=== PATIENT | female | born 1965 | race Caucasian/White ===

== ENCOUNTER 2018-07-08 10:13 | Emergency (ER) | payer OTHER ==
--- NOTE | 2018-07-08 10:22 | UC ---
Respiratory Complaint HPI - HPI Summary HPI Summary: 52 yo female presents with sinus pain/pressure/congestion, post nasal drip, and intermittently productive for the last 5 days. She tells me that on day 1 and 2 she felt hot/cold and thinks she may have had a fever, but did not take her temperature. She has been taking mucinex and ibuprofen for her symptoms with little relief. Last night developed some redness in her right eye with clear/ yellow discharge - this morning woke with it spread into her left eye. She does not wear contacts. Denies sore throat, SOB, chest pain, vision changes, or trauma to eye. Her BP is quite elevated today, but pt did not take her medication this morning. Denies headache, vision change, weakness, numbness, chest pain. - History of Current Complaint Stated Complaint: SINUS INFECT/PINK EYE Time Seen by Provider: 07/08/18 10:22 Hx Obtained From: Patient Onset/Duration: Gradual Onset - Allergies/Home Medications Allergies/Adverse Reactions: Allergies Allergy/AdvReac Type Severity Reaction Status Date / Time metoprolol Allergy Hives Verified 07/08/18 10:23 Penicillins Allergy Swelling Verified 07/08/18 10:23 Home Medications: Home Medications Atenolol 50 mg PO BID 07/08/18 [History Confirmed 07/08/18] Pantoprazole TAB * [Protonix TAB*] 40 mg PO DAILY 07/08/18 [History Confirmed ] PMH/Surg Hx/FS Hx/Imm Hx Cardiovascular History: Hypertension GI/ History: Gastroesophageal Reflux - Family History Known Family History: Positive: None - Social History Occupation: Employed Full-time Lives: With Family Alcohol Use: Occasionally Substance Use Type: None Smoking Status (MU): Never Smoked Tobacco Review of Systems All Other Systems Reviewed And Are Negative: Yes Constitutional: Positive: Negative Skin: Positive: Negative Eyes: Positive: Drainage, Eye Redness ENT: Positive: Nasal Discharge, Sinus Congestion, Sinus Pain/Tenderness Respiratory: Positive: Cough Cardiovascular: Positive: Negative Gastrointestinal: Positive: Negative Neurovascular: Positive: Negative Neurological: Positive: Negative Psychological: Positive: Negative Physical Exam - Summary Physical Exam Summary: GENERAL: NAD. WDWN. No pain distress. SKIN: No rashes, sores, lesions, or open wounds. HEENT: Head: AT/NC Eyes: EOM intact. PERRLA. B/L EYE: Mild scleral injection. Conjunctiva with mild erythema and inflammation. Mild clear/yellow discharge. No FBs appreciated Ears: Hearing grossly normal. TMs intact, no bulging, erythema, or edema. Nose: Nasal mucosa mildly swollen and erythematous with yellow/ clear discharge. TTP maxillary > frontal sinus. Positive post nasal drip Throat: Posterior oropharynx without exudates, erythema, or tonsillar enlargement. Uvula midline. NECK: Supple. Nontender. No lymphadenopathy. CHEST: CTAB. No r/r/w. No accessory muscle use. Breathing comfortably and in no distress. CV: RRR. Without m/r/g. Pulses intact. NEURO: Alert. PSYCH: Age appropriate behavior. Triage Information Reviewed: Yes Vital Signs: Vital Signs: Temp Pulse Resp BP Pulse Ox 98.3 F 74 18 170/98 98 07/08/18 10:22 07/08/18 10:22 07/08/18 10:22 07/08/18 10:44 07/08/18 10:22 Vital Signs Reviewed: Yes Respiratory Course/Dx - Course Course Of Treatment: Sinusitis. Advised to make sure to take her BP medications as prescribed. - Differential Dx/Diagnosis Provider Diagnosis: Sinusitis Discharge - Sign-Out/Discharge Documenting (check all that apply): Patient Departure All imaging exams completed and their final reports reviewed: No Studies - Discharge Plan Condition: Stable Disposition: HOME Prescriptions: Azithromycin TAB* [Zithromax TAB (Z-BRITNEY) 250 mg #6 tabs] 2 tab PO .TODAY, THEN 1 DAILY #1 britney Fluconazole 150 MG TAB* [Diflucan 150 MG TAB*] 150 mg PO ONCE #1 tablet Polymyx/Trimethoprim OPTH* [Polytrim OPHTH*] 1 drop BOTH EYES QID #1 btl Patient Education Materials: Sinusitis (ED), Conjunctivitis (ED) Referrals: No Primary Care Phys,NOPCP [Primary Care Provider] - Additional Instructions: If you develop a fever, shortness of breath, chest pain, new or worsening symptoms - please call your PCP or go to the ED. Your blood pressure was high at todays visit. Please see your primary provider within 4 weeks for recheck and re-evaluation. - Billing Disposition and Condition Condition: STABLE Disposition: Home
[2018-07-08 10:45] VITALS: BP 170/98
== END 2018-07-08 10:45 | disposition home or self-care (01) ==
LOC: UCEAST 10:13
DX: J32.9 Chronic sinusitis, unspecified (principal); I10 Essential (primary) hypertension; K21.9 Gastro-esophageal reflux disease without esophagitis; Z88.0 Allergy status to penicillin; Z88.8 Allergy status to other drugs, medicaments and biological substances
CPT/HCPCS: 99202; G0463